=== PATIENT | female | born 1975 | race Caucasian/White ===

== ENCOUNTER 2017-04-21 12:43 | Emergency (ER) | payer OTHER ==
--- NOTE | 2017-04-21 14:17 | ED ORDER SUMMARY ---
..... Patient: KIERA GRAY OrderSheet [facility] VisitID: [id number] [address] [place] [address] 41y, F Registration Date/Time: 04/21/2017 ORDER SHEET Weight: 69.8 kg (stated) Allergies: No Known Drug Allergy GENERAL ORDERS: US Venous Left Urgent (13:05 04/21/2017 Vania Martines) (Ack 13:07 PWeiler ER Tech1) (13:17 LWhalen R.N.) MEDICATION ORDERS: Keflex PO 500 mg (NOW) (13:05 04/21/2017 Vania Martines) (Ack 13:11 MWinterer R.N.) (13:17 LWhalen R.N.) Bactrim DS PO (Tablet 800-160 mg) 1 tab (NOW) (13:05 04/21/2017 Vania Martines) (Ack 13:11 MWinterer R.N.) (13:17 LWhalen R.N.) IV FLUIDS: ORDER SHEET NOTES: [Electronically signed by Luba Buchanan R.N. (14:35 04/21/2017)] [Electronically signed by Chaitanya Ortiz Dr. (19:06 04/22/2017)] [Electronically locked/signed by Luba Buchanan R.N. (14:35 04/21/2017)]
--- NOTE | 2017-04-21 14:17 | ED NURSING NOTES ---
Clinical Report - Nurses [place] [address] [place] [address] 04/21/2017 12:49 Patient: KIERA GRAY TRIAGE Acuity: LEVEL 4. Chief Complaint: LEFT LOWER EXTREMITY PAIN, SWELLING and REDNESS. Alert. No acute distress. SEPSIS SCREEN: Sepsis Screen. Negative (no infection suspected/documented). ZACARIAS COMA SCORE: [facility] Coma Scale: 15- eyes open spontaneously (4); best verbal response- oriented x 4 (5); best motor response- obeys commands (6). --12:59 Toña Avila R.N. 12:54 04/21/17. BP: 133/69. HR: 75. RR: 12. O2 saturation: 100% on room air. Temp: 98.1 F (oral). Pain level now: 0/10. --12:59 Toña Avila R.N. Weight: 69.8 kg stated. Height/Length: 67 inches Per Patient. BMI: 24.1. --12:58 Toña Avila R.N. Medications PARoxetine HCl Oral (Tablet 40 mg) 1 tablet, q day. --12:55 Toña Avila R.N. BuPROPion HCl Oral. --12:55 Toña Avila R.N. Chantix Oral. --12:55 Toña Avila R.N. Medication/allergy information source: the patient. --12:59 Toña Avila R.N. Allergies No Known Drug Allergy. --12:56 Toña Avila R.N. History Arrived by private vehicle. Historian: patient. Unaccompanied. Primary physician (Elmo). No injury occurred. This occurred (3 days ago). 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 PAST MEDICAL HX: Immunizations: up-to-date. Last normal menstrual period now. SOCIAL HX: Current every day heavy tobacco smoker (cigarette)- less than 1 pack per day. Occasional alcohol use. No drug use. FALL RISK ASSESSMENT: Fall risk assessment completed. No fall risk identified. NUTRITIONAL RISK ASSESSMENT: The nutritional risk assessment revealed no deficiencies. FUNCTIONAL ASSESSMENT: Functional assessment: no impairments noted. LEARNING NEEDS ASSESSMENT: The learning needs assessment revealed no barriers. SKIN INTEGRITY ASSESSMENT: Skin integrity risk assessment completed. No skin integrity risk identified. --12:59 Toña Avila R.N. PROBLEMS: Genital Lesion. Concussion. Fall. Anxiety Reaction. Bronchitis. Pharyngitis. Substance Abuse. Headache. Depression. Ureterolithiasis. Renal Colic. Immunizations. --12:56 Toña Avila R.N. ADDITIONAL SURGERIES: Cholecystectomy. Tubal Ligation. --12:56 Toña Avila R.N. Assessment GENERAL / NEURO / PSYCH: Alert. Oriented X 4. Appears in no acute distress. Patient appears calm and cooperative. RESPIRATORY: Respirations not labored. CVS: Capillary refill less than 2 seconds. GI / : Abdomen soft and nontender. SKIN: Mucous membranes are pink. Skin is warm and dry. --12:59 Toña Avila R.N. Interventions ID band on patient. To treatment room. --12:59 Toña Avila R.N. PHYSICAL ASSESSMENT Ambulatory to room. GENERAL / NEURO / PSYCH: Oriented X 4. Alert. Appears in no acute distress. EXTREMITIES: Extremity pulses are within normal limits. Extremities exhibit normal ROM. Neuro-vascular status intact to the extremity. No lower extremity edema. Normal gait. Left leg: tenderness, swelling and erythema. SKIN: Skin intact. Skin is warm and dry. --12:59 Toña Avila R.N. NURSING PROGRESS NOTES 13:00 04/21/17. Patient gowned. Two patient identifiers checked. Call light placed in reach. Side rails up x 1. Bed placed in lowest position. Brakes of bed on. Patient ready for evaluation- ED physician notified. --13:00 Toña Avila R.N. 13:17 04/21/2017 Keflex (Cephalexin) PO Capsules 500 mg given. Allergies verified and confirmed 5 rights. --13:17 Luba Buchanan R.N. 13:17 04/21/2017 Bactrim DS (Sulfamethoxazole-TMP DS) PO Tablets 1 tab given. Allergies verified and confirmed 5 rights. --13:17 Luba Buchanan R.N. DISPOSITION / DISCHARGE Departure time: 14:35 Apr 21 2017. Condition at departure: improved. No learning barriers present. Discharge instructions provided and reviewed with the patient. Reviewed warnings. Reviewed medication(s). Treatments reviewed. Reviewed referrals. Patient verbalized understanding. Written instructions provided in Frisian. The patient was discharged home. She left the Emergency Department ambulatory and via private vehicle. Patient driving. --14:35 Luba Buchanan R.N. 14:34 04/21/17. BP: 112/72. HR: 60. RR: 18. O2 saturation: 100%. Temp: 98.4 F. Pain level now 12/26. --14:35 Luba Buchanan R.N. Locked/Released at 04/21/2017 14:35 by Luba Buchanan R.N.
--- NOTE | 2017-04-21 14:17 | ED ORDER SUMMARY ---
..... Patient: KIERA GRAY OrderSheet [facility] VisitID: [id number] [address] [place] [address] 41y, F Registration Date/Time: 04/21/2017 ORDER SHEET Weight: 69.8 kg (stated) Allergies: No Known Drug Allergy GENERAL ORDERS: US Venous Left Urgent (13:05 04/21/2017 Vania Martines) (Ack 13:07 PWeiler ER Tech1) (13:17 LWhalen R.N.) MEDICATION ORDERS: Keflex PO 500 mg (NOW) (13:05 04/21/2017 Vania Martines) (Ack 13:11 MWinterer R.N.) (13:17 LWhalen R.N.) Bactrim DS PO (Tablet 800-160 mg) 1 tab (NOW) (13:05 04/21/2017 Vania Martines) (Ack 13:11 MWinterer R.N.) (13:17 LWhalen R.N.) IV FLUIDS: ORDER SHEET NOTES: [Electronically signed by Luba Buchanan R.N. (14:35 04/21/2017)] [Electronically signed by Chaitanya Ortiz Dr. (19:06 04/22/2017)] [Electronically locked/signed by Luba Buchanan R.N. (14:35 04/21/2017)]
--- NOTE | 2017-04-21 14:17 | ED CLINICAL REPORT ---
Clinical Report - Physicians/Mid Levels [facility] [address] [place] [place] [address] 04/21/2017 12:49 Patient: KIERA GRAY Time Seen: 1249. Arrived- By private vehicle. Historian- patient. HISTORY OF PRESENT ILLNESS Chief Complaint: LOWER EXTREMITY PAIN and SWELLING. This started 3 days ago and is still present (unchanged). It was gradual in onset and has been constant but is not gone now. Modifying factors- worsened by movement. Relieved by remaining still. Severity is described as being moderate. The quality is noted to be sharp. No radiation. The patient has had redness and swelling. No difficulty walking. No bladder dysfunction, bowel dysfunction, sensory loss or motor loss. ( no hx of PE or DVT. No recent surgeries or trauma. NO OCP use.). Patient denies an injury. Similar symptoms previously: None. Recent medical care: Not recently seen/assessed. REVIEW OF SYSTEMS No chest pain, difficulty breathing or fever. All systems otherwise negative, except as recorded above. PAST HISTORY See nurses notes. Medications: Chantix Oral. BuPROPion HCl Oral. PARoxetine HCl Oral (Tablet 40 mg) 1 tablet, q day. Allergies: No Known Drug Allergy. ADDITIONAL NOTES The nursing notes have been reviewed. PHYSICAL EXAM Vital Signs: 04/21/2017 14:34 BP: 112/72. HR: 60. RR: 18. O2 saturation: 100%. Temp: 98.4 F. Blood pressure normal. Oxygen saturation normal. Appearance: Alert. Oriented X3. No acute distress. CVS: Normal heart rate and rhythm. Heart sounds normal. Respiratory: No respiratory distress. Breath sounds normal. Abdomen: Soft and nontender. No organomegaly. Back: Normal inspection. No tenderness. ROM normal. Skin: (left posterior lower leg erythema. Increased warmth. Mild tenderness. No masses. No induration. No crepitus. It is mild/moderate in area.). Extremities: Lower extremities exhibit normal ROM. No lower extremity edema. Gait: Normal gait. Neuro: Oriented X 3. No motor deficit. LABS, X-RAYS, AND EKG Lower Extremity Sonography: PROCEDURE: US VENOUS - LEFT EXT INDICATION: Swelling and pain x 3 days. TECHNIQUE: Duplex sonography of the deep venous system in the left lower extremity was performed. Compression and augmentation techniques were used. COMPARISON: None. FINDINGS: Normal compression of the greater saphenous, common femoral, superficial femoral, popliteal, peroneal, and posterior tibial veins. Normal augmentation. There is no evidence of superficial or deep venous thrombosis. No evidence of a focal mass or cyst. IMPRESSION: 1. Negative venous ultrasound of the left lower extremity. The study was independently viewed by me and interpreted by the radiologist. The study was discussed with the radiologist (via pacs). PROGRESS AND PROCEDURES Course of Care: the patient is a pleasant 41-year-old female presenting for evaluation of swelling to the left lower extremity. At this time, patient has cellulitis, but also like to evaluate for signs of DVT. Patient is he treatment plan. Patient appears nontoxic. Patient is afebrile and not tachycardic. No concern for sepsis at this time. The patient's workup was markable for the findings above. No signs of DVT noted on patient's ultrasound. Patient with cellulitis to the left lower extremity. Patient will be treated with antibiotics. First dose has been provided here in the emergency department. Had a discussion with the patient in regards to work. Emergency department including diagnosis, home care, follow-up, and return precautions. All questions have been answered. The patient expressed understanding of these instructions and was agreeable to them. Prior to the patient's departure from the emergency department she is noted to be ambulatory and in no acute distress. Patient continues to be nontoxic. Patient is a good outpatient candidate. Disposition: Discharged. Condition: good. CLINICAL IMPRESSION Cellulitis of the left lower leg (acute). INSTRUCTIONS Warnings: GENERAL WARNINGS: Return or contact your physician immediately if your condition worsens or changes unexpectedly, if not improving as expected, or if other problems arise. Specifically return if pain, vomiting, bleeding, breathing difficulty or fever. Your Current Medications: CONTINUE TAKING THE FOLLOWING MEDICATIONS: BuPROPion HCl Oral. Chantix Oral. PARoxetine HCl Oral : Tablet 40 mg, 1 tablet q day. Prescription Medications: Cephalexin 500 mg: take 1 capsule orally every 8 hours for 10 days. No refill. (disp 30 caps) Bactrim DS: take 1 tablet orally every 12 hours for 10 days. No refill. Substitution is not permissible. (substitution allowed. disp 20 tabs.) Follow-up: Return to the emergency department as needed. Follow up with your doctor in three days. Reason for referral: recheck today's concerns. Summary of care provided to patient via paper. Screening today revealed the patient's blood pressure to be in the normal range. The patient should follow up with a primary care provider for blood pressure management. Understanding of the discharge instructions verbalized by patient. (Electronically signed by Chaitanya Ortiz Dr. 04/22/2017 19:06)
--- NOTE | 2017-04-21 14:17 | ED NURSING NOTES ---
Clinical Report - Nurses [place] [address] [place] [address] 04/21/2017 12:49 Patient: KIERA GRAY TRIAGE Acuity: LEVEL 4. Chief Complaint: LEFT LOWER EXTREMITY PAIN, SWELLING and REDNESS. Alert. No acute distress. SEPSIS SCREEN: Sepsis Screen. Negative (no infection suspected/documented). ZACARIAS COMA SCORE: [place] Coma Scale: 15- eyes open spontaneously (4); best verbal response- oriented x 4 (5); best motor response- obeys commands (6). --12:59 Toña Avila R.N. 12:54 04/21/17. BP: 133/69. HR: 75. RR: 12. O2 saturation: 100% on room air. Temp: 98.1 F (oral). Pain level now: 0/10. --12:59 Toña Avila R.N. Weight: 69.8 kg stated. Height/Length: 67 inches Per Patient. BMI: 24.1. --12:58 Toña Avila R.N. Medications PARoxetine HCl Oral (Tablet 40 mg) 1 tablet, q day. --12:55 Toña Avila R.N. BuPROPion HCl Oral. --12:55 Toña Avila R.N. Chantix Oral. --12:55 Toña Avila R.N. Medication/allergy information source: the patient. --12:59 Toña Avila R.N. Allergies No Known Drug Allergy. --12:56 Toña Avila R.N. History Arrived by private vehicle. Historian: patient. Unaccompanied. Primary physician (Elmo). No injury occurred. This occurred (3 days ago). 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 PAST MEDICAL HX: Immunizations: up-to-date. Last normal menstrual period now. SOCIAL HX: Current every day heavy tobacco smoker (cigarette)- less than 1 pack per day. Occasional alcohol use. No drug use. FALL RISK ASSESSMENT: Fall risk assessment completed. No fall risk identified. NUTRITIONAL RISK ASSESSMENT: The nutritional risk assessment revealed no deficiencies. FUNCTIONAL ASSESSMENT: Functional assessment: no impairments noted. LEARNING NEEDS ASSESSMENT: The learning needs assessment revealed no barriers. SKIN INTEGRITY ASSESSMENT: Skin integrity risk assessment completed. No skin integrity risk identified. --12:59 Toña Avila R.N. PROBLEMS: Genital Lesion. Concussion. Fall. Anxiety Reaction. Bronchitis. Pharyngitis. Substance Abuse. Headache. Depression. Ureterolithiasis. Renal Colic. Immunizations. --12:56 Toña Avila R.N. ADDITIONAL SURGERIES: Cholecystectomy. Tubal Ligation. --12:56 Toña Avila R.N. Assessment GENERAL / NEURO / PSYCH: Alert. Oriented X 4. Appears in no acute distress. Patient appears calm and cooperative. RESPIRATORY: Respirations not labored. CVS: Capillary refill less than 2 seconds. GI / : Abdomen soft and nontender. SKIN: Mucous membranes are pink. Skin is warm and dry. --12:59 Toña Avila R.N. Interventions ID band on patient. To treatment room. --12:59 Toña Avila R.N. PHYSICAL ASSESSMENT Ambulatory to room. GENERAL / NEURO / PSYCH: Oriented X 4. Alert. Appears in no acute distress. EXTREMITIES: Extremity pulses are within normal limits. Extremities exhibit normal ROM. Neuro-vascular status intact to the extremity. No lower extremity edema. Normal gait. Left leg: tenderness, swelling and erythema. SKIN: Skin intact. Skin is warm and dry. --12:59 Toña Avila R.N. NURSING PROGRESS NOTES 13:00 04/21/17. Patient gowned. Two patient identifiers checked. Call light placed in reach. Side rails up x 1. Bed placed in lowest position. Brakes of bed on. Patient ready for evaluation- ED physician notified. --13:00 Toña Avila R.N. 13:17 04/21/2017 Keflex (Cephalexin) PO Capsules 500 mg given. Allergies verified and confirmed 5 rights. --13:17 Luba Buchanan R.N. 13:17 04/21/2017 Bactrim DS (Sulfamethoxazole-TMP DS) PO Tablets 1 tab given. Allergies verified and confirmed 5 rights. --13:17 Luba Buchanan R.N. DISPOSITION / DISCHARGE Departure time: 14:35 Apr 21 2017. Condition at departure: improved. No learning barriers present. Discharge instructions provided and reviewed with the patient. Reviewed warnings. Reviewed medication(s). Treatments reviewed. Reviewed referrals. Patient verbalized understanding. Written instructions provided in Danish. The patient was discharged home. She left the Emergency Department ambulatory and via private vehicle. Patient driving. --14:35 Luba Buchanan R.N. 14:34 04/21/17. BP: 112/72. HR: 60. RR: 18. O2 saturation: 100%. Temp: 98.4 F. Pain level now 12/26. --14:35 Luba Buchanan R.N. Locked/Released at 04/21/2017 14:35 by Luba Buchanan R.N.
--- NOTE | 2017-04-21 14:20 | DIAGNOSTIC IMAGING REPORT ---
PROCEDURE: US VENOUS - LEFT EXT INDICATION: Swelling and pain x 3 days. TECHNIQUE: Duplex sonography of the deep venous system in the left lower extremity was performed. Compression and augmentation techniques were used. COMPARISON: None. FINDINGS: Normal compression of the greater saphenous, common femoral, superficial femoral, popliteal, peroneal, and posterior tibial veins. Normal augmentation. There is no evidence of superficial or deep venous thrombosis. No evidence of a focal mass or cyst. IMPRESSION: 1. Negative venous ultrasound of the left lower extremity.
--- NOTE | 2017-04-22 19:06 | ED MED RECONCILIATION SUMMARY ---
Patient: KIERA GRAY Medication Reconciliation Report [facility] VisitID: [id number] [address] [place] [address] 41y, F Registration Date/Time: 04/21/2017 Weight: 69.8 kg Height/Length: 67 in. BMI: 24.1 ALLERGIES: No Known Drug Allergy The patient's Home Medications are listed below: CONTINUE TAKING THE FOLLOWING MEDICATIONS: BuPROPion HCl Oral Chantix Oral PARoxetine HCl Oral (40 mg) 1 tablet, q day The source(s) of the original Home Medication information: patient The following Medications were given to the patient in the Emergency Department: Keflex [PO] PO 500 mg, administered: 04/21/2017 1:17:00 PM Bactrim DS [PO] PO 1 tab, administered: 04/21/2017 1:17:00 PM The following Medications were prescribed to the patient: Cephalexin 500 mg: take 1 capsule orally every 8 hours for 10 days. No refill.(disp 30 caps) -- Chaitanya Ortiz Dr. Bactrim DS: take 1 tablet orally every 12 hours for 10 days. No refill. Substitution is not permissible.(substitution allowed. disp 20 tabs.) -- Chaitanya Ortiz Dr.
--- NOTE | 2017-04-22 19:06 | ED MAR SUMMARY ---
..... Medication Administration Record [facility] [address] [place] [address] Patient: KIERA GRAY Visit ID: [id number] 41y, F Weight: 69.8 kg Height/Length: 67 in BMI: 24.1 ALLERGIES: No Known Drug Allergy Given 13:04/21/2017 Luba Buchanan, RFedericoN. Medication Administered: KEFLEX [PO] (CEPHALEXIN), Dose: 500 mg Capsules PO. Medication Ordered: Keflex PO 500 mg (NOW). Given 13:04/21/2017 Luba Buchanan, R.N. Medication Administered: BACTRIM DS [PO] (SULFAMETHOXAZOLE-TMP DS), Dose: 1 tab Tablets PO. Medication Ordered: Bactrim DS PO (Tablet 800-160 mg) 1 tab (NOW).
--- NOTE | 2017-04-22 19:06 | ED DISCHARGE INSTRUCTIONS ---
Patient: KIERA GRAY General Instructions [facility] VisitID: [id number] [address] [place] [address] 41y, F Registration Date/Time: 04/21/2017 Cellulitis of the left lower leg (acute). INSTRUCTIONS Warnings: GENERAL WARNINGS: Return or contact your physician immediately if your condition worsens or changes unexpectedly, if not improving as expected, or if other problems arise. Specifically return if pain, vomiting, bleeding, breathing difficulty or fever. Your Current Medications: CONTINUE TAKING THE FOLLOWING MEDICATIONS: BuPROPion HCl Oral. Chantix Oral. PARoxetine HCl Oral : Tablet 40 mg, 1 tablet q day. Prescription Medications: Cephalexin 500 mg: take 1 capsule orally every 8 hours for 10 days. No refill. (disp 30 caps) Bactrim DS: take 1 tablet orally every 12 hours for 10 days. No refill. Substitution is not permissible. (substitution allowed. disp 20 tabs.) Follow-up: Return to the emergency department as needed. Follow up with your doctor in three days. Reason for referral: recheck today's concerns. Summary of care provided to patient via paper. Screening today revealed the patient's blood pressure to be in the normal range. The patient should follow up with a primary care provider for blood pressure management. Understanding of the discharge instructions verbalized by patient. ADDITIONAL INFORMATION Cellulitis You have an infection of the skin known as cellulitis. This usually starts with a scrape, cut, insect bite, blister or other opening in the skin which becomes infected. This is a serious condition. It must be watched closely to be sure the infection is not spreading. With antibiotic treatment, the size of the red area will gradually shrink in size until the skin returns to normal. This will take 7-10 days. The red area should never increase in size once the antibiotic medicine has been started. Occasionally, an infection will be resistant to one antibiotic and another one will have to be used. Home Care: 1) Limit the use of the affected part, since excess movement can cause the infection to spread. 2) If the infection is on your leg, walk as little as possible during the first few days of the treatment. Keep your leg elevated while sitting. This will reduce swelling. 3) Take all of the antibiotic medicine exactly as directed until it is gone. Be careful not to miss any doses, especially during the first seven days. Follow Up with your doctor or this facility as directed. Check the infected area daily for the warning signs listed below. Get Prompt Medical Attention if any of the following occur: -- Spreading area of redness -- Increasing swelling or pain -- Appearance of pus or drainage -- Fever over 100.4 F (38.0 C) oral, or over 101.4 F (38.6 C) rectal, after two days on antibiotics Cephalexin Monohydrate Oral tablet What is this medicine? CEPHALEXIN (sef a SARIAH in) is a cephalosporin antibiotic. It is used to treat certain kinds of bacterial infections It will not work for colds, flu, or other viral infections. How should I use this medicine? Take this medicine by mouth with a full glass of water. Follow the directions on the prescription label. This medicine can be taken with or without food. Take your medicine at regular intervals. Do not take your medicine more often than directed. Take all of your medicine as directed even if you think you are better. Do not skip doses or stop your medicine early. Talk to your appointment clerk regarding the use of this medicine in children. While this drug may be prescribed for selected conditions, precautions do apply. What side effects may I notice from receiving this medicine? Side effects that you should report to your doctor or health career services assistant as soon as possible: allergic reactions like skin rash, itching or hives, swelling of the face, lips, or tongue breathing problems pain or trouble passing urine redness, blistering, peeling or loosening of the skin, including inside the mouth severe or watery diarrhea unusually weak or tired yellowing of the eyes, skin Side effects that usually do not require medical attention (report to your doctor or health career services assistant if they continue or are bothersome): gas or heartburn genital or anal irritation headache joint or muscle pain nausea, vomiting What may interact with this medicine? probenecid some other antibiotics What if I miss a dose? If you miss a dose, take it as soon as you can. If it is almost time for your next dose, take only that dose. Do not take double or extra doses. There should be at least 4 to 6 hours between doses. Where should I keep my medicine? Keep out of the reach of children. Store at room temperature between 59 and 86 degrees F (15 and 30 degrees C). Throw away any unused medicine after the expiration date. What should I tell my health care provider before I take this medicine? They need to know if you have any of these conditions: kidney disease stomach or intestine problems, especially colitis an unusual or allergic reaction to cephalexin, other cephalosporins, penicillins, other antibiotics, medicines, foods, dyes or preservatives or trying to get breast-feeding What should I watch for while using this medicine? Tell your doctor or health career services assistant if your symptoms do not begin to improve in a few days. Do not treat diarrhea with over the counter products. Contact your doctor if you have diarrhea that lasts more than 2 days or if it is severe and watery. If you have diabetes, you may get a false-positive result for sugar in your urine. Check with your doctor or health career services assistant. Sulfamethoxazole, Trimethoprim Oral tablet What is this medicine? SULFAMETHOXAZOLE; TRIMETHOPRIM or SMX-TMP (suhl fuh meth OK angelo zohl; trye METH oh prim) is a combination of a sulfonamide antibiotic and a second antibiotic, trimethoprim. It is used to treat or prevent certain kinds of bacterial infections. It will not work for colds, flu, or other viral infections. How should I use this medicine? Take this medicine by mouth with a full glass of water. Follow the directions on the prescription label. Take your medicine at regular intervals. Do not take it more often than directed. Do not skip doses or stop your medicine early. Talk to your appointment clerk regarding the use of this medicine in children. Special care may be needed. This medicine has been used in children as young as 2 months of age. What side effects may I notice from receiving this medicine? Side effects that you should report to your doctor or health career services assistant as soon as possible: allergic reactions like skin rash or hives, swelling of the face, lips, or tongue breathing problems fever or chills, sore throat irregular heartbeat, chest pain joint or muscle pain pain or difficulty passing urine red pinpoint spots on skin redness, blistering, peeling or loosening of the skin, including inside the mouth unusual bleeding or bruising unusually weak or tired yellowing of the eyes or skin Side effects that usually do not require medical attention (report to your doctor or health career services assistant if they continue or are bothersome): diarrhea dizziness headache loss of appetite nausea, vomiting nervousness What may interact with this medicine? Do not take this medicine with any of the following medications: aminobenzoate potassium dofetilide metronidazole This medicine may also interact with the following medications: AGUILAR inhibitors like benazepril, enalapril, lisinopril, and ramipril cyclosporine digoxin diuretics indomethacin medicines for diabetes methenamine methotrexate phenytoin potassium supplements pyrimethamine sulfinpyrazone tricyclic antidepressants warfarin What if I miss a dose? If you miss a dose, take it as soon as you can. If it is almost time for your next dose, take only that dose. Do not take double or extra doses. Where should I keep my medicine? Keep out of the reach of children. Store at room temperature between 20 to 25 degrees C (68 to 77 degrees F). Protect from light. Throw away any unused medicine after the expiration date. What should I tell my health care provider before I take this medicine? They need to know if you have any of these conditions: anemia asthma being treated with anticonvulsants if you frequently drink alcohol containing drinks kidney disease liver disease low level of folic acid or [id number]-[id number] dehydrogenase poor nutrition or malabsorption porphyria severe allergies thyroid disorder an unusual or allergic reaction to sulfamethoxazole, trimethoprim, sulfa drugs, other medicines, foods, dyes, or preservatives or trying to get breast-feeding What should I watch for while using this medicine? Tell your doctor or health career services assistant if your symptoms do not improve. Drink several glasses of water a day to reduce the risk of kidney problems. Do not treat diarrhea with over the counter products. Contact your doctor if you have diarrhea that lasts more than 2 days or if it is severe and watery. This medicine can make you more sensitive to the sun. Keep out of the sun. If you cannot avoid being in the sun, wear protective clothing and use a sunscreen. Do not use sun lamps or tanning beds/booths. You have been given the following additional information: Cellulitis Cephalexin Monohydrate Oral tablet Sulfamethoxazole, Trimethoprim Oral tablet (Electronically signed by Chaitanya Ortiz Dr. 04/22/2017 19:06)
--- NOTE | 2017-04-22 19:06 | ED MED RECONCILIATION SUMMARY ---
Patient: KIERA GRAY Medication Reconciliation Report [facility] VisitID: [id number] [address] [place] [address] 41y, F Registration Date/Time: 04/21/2017 Weight: 69.8 kg Height/Length: 67 in. BMI: 24.1 ALLERGIES: No Known Drug Allergy The patient's Home Medications are listed below: CONTINUE TAKING THE FOLLOWING MEDICATIONS: BuPROPion HCl Oral Chantix Oral PARoxetine HCl Oral (40 mg) 1 tablet, q day The source(s) of the original Home Medication information: patient The following Medications were given to the patient in the Emergency Department: Keflex [PO] PO 500 mg, administered: 04/21/2017 1:17:00 PM Bactrim DS [PO] PO 1 tab, administered: 04/21/2017 1:17:00 PM The following Medications were prescribed to the patient: Cephalexin 500 mg: take 1 capsule orally every 8 hours for 10 days. No refill.(disp 30 caps) -- Chaitanya Ortiz Dr. Bactrim DS: take 1 tablet orally every 12 hours for 10 days. No refill. Substitution is not permissible.(substitution allowed. disp 20 tabs.) -- Chaitanya Ortiz Dr.
--- NOTE | 2017-04-22 19:06 | ED MAR SUMMARY ---
..... Medication Administration Record [facility] [address] [place] [address] Patient: KIERA GRAY Visit ID: [id number] 41y, F Weight: 69.8 kg Height/Length: 67 in BMI: 24.1 ALLERGIES: No Known Drug Allergy Given 13:04/21/2017 Luba Buchanan, RFedericoN. Medication Administered: KEFLEX [PO] (CEPHALEXIN), Dose: 500 mg Capsules PO. Medication Ordered: Keflex PO 500 mg (NOW). Given 13:04/21/2017 Luba Buchanan, R.N. Medication Administered: BACTRIM DS [PO] (SULFAMETHOXAZOLE-TMP DS), Dose: 1 tab Tablets PO. Medication Ordered: Bactrim DS PO (Tablet 800-160 mg) 1 tab (NOW).
--- NOTE | 2017-04-22 19:06 | ED DISCHARGE INSTRUCTIONS ---
Patient: KIERA GRAY General Instructions [facility] VisitID: [id number] [address] [place] [address] 41y, F Registration Date/Time: 04/21/2017 Cellulitis of the left lower leg (acute). INSTRUCTIONS Warnings: GENERAL WARNINGS: Return or contact your physician immediately if your condition worsens or changes unexpectedly, if not improving as expected, or if other problems arise. Specifically return if pain, vomiting, bleeding, breathing difficulty or fever. Your Current Medications: CONTINUE TAKING THE FOLLOWING MEDICATIONS: BuPROPion HCl Oral. Chantix Oral. PARoxetine HCl Oral : Tablet 40 mg, 1 tablet q day. Prescription Medications: Cephalexin 500 mg: take 1 capsule orally every 8 hours for 10 days. No refill. (disp 30 caps) Bactrim DS: take 1 tablet orally every 12 hours for 10 days. No refill. Substitution is not permissible. (substitution allowed. disp 20 tabs.) Follow-up: Return to the emergency department as needed. Follow up with your doctor in three days. Reason for referral: recheck today's concerns. Summary of care provided to patient via paper. Screening today revealed the patient's blood pressure to be in the normal range. The patient should follow up with a primary care provider for blood pressure management. Understanding of the discharge instructions verbalized by patient. ADDITIONAL INFORMATION Cellulitis You have an infection of the skin known as cellulitis. This usually starts with a scrape, cut, insect bite, blister or other opening in the skin which becomes infected. This is a serious condition. It must be watched closely to be sure the infection is not spreading. With antibiotic treatment, the size of the red area will gradually shrink in size until the skin returns to normal. This will take 7-10 days. The red area should never increase in size once the antibiotic medicine has been started. Occasionally, an infection will be resistant to one antibiotic and another one will have to be used. Home Care: 1) Limit the use of the affected part, since excess movement can cause the infection to spread. 2) If the infection is on your leg, walk as little as possible during the first few days of the treatment. Keep your leg elevated while sitting. This will reduce swelling. 3) Take all of the antibiotic medicine exactly as directed until it is gone. Be careful not to miss any doses, especially during the first seven days. Follow Up with your doctor or this facility as directed. Check the infected area daily for the warning signs listed below. Get Prompt Medical Attention if any of the following occur: -- Spreading area of redness -- Increasing swelling or pain -- Appearance of pus or drainage -- Fever over 100.4 F (38.0 C) oral, or over 101.4 F (38.6 C) rectal, after two days on antibiotics Cephalexin Monohydrate Oral tablet What is this medicine? CEPHALEXIN (sef a SARIAH in) is a cephalosporin antibiotic. It is used to treat certain kinds of bacterial infections It will not work for colds, flu, or other viral infections. How should I use this medicine? Take this medicine by mouth with a full glass of water. Follow the directions on the prescription label. This medicine can be taken with or without food. Take your medicine at regular intervals. Do not take your medicine more often than directed. Take all of your medicine as directed even if you think you are better. Do not skip doses or stop your medicine early. Talk to your keypuncher regarding the use of this medicine in children. While this drug may be prescribed for selected conditions, precautions do apply. What side effects may I notice from receiving this medicine? Side effects that you should report to your doctor or health weekend caregiver as soon as possible: allergic reactions like skin rash, itching or hives, swelling of the face, lips, or tongue breathing problems pain or trouble passing urine redness, blistering, peeling or loosening of the skin, including inside the mouth severe or watery diarrhea unusually weak or tired yellowing of the eyes, skin Side effects that usually do not require medical attention (report to your doctor or health weekend caregiver if they continue or are bothersome): gas or heartburn genital or anal irritation headache joint or muscle pain nausea, vomiting What may interact with this medicine? probenecid some other antibiotics What if I miss a dose? If you miss a dose, take it as soon as you can. If it is almost time for your next dose, take only that dose. Do not take double or extra doses. There should be at least 4 to 6 hours between doses. Where should I keep my medicine? Keep out of the reach of children. Store at room temperature between 59 and 86 degrees F (15 and 30 degrees C). Throw away any unused medicine after the expiration date. What should I tell my health care provider before I take this medicine? They need to know if you have any of these conditions: kidney disease stomach or intestine problems, especially colitis an unusual or allergic reaction to cephalexin, other cephalosporins, penicillins, other antibiotics, medicines, foods, dyes or preservatives or trying to get breast-feeding What should I watch for while using this medicine? Tell your doctor or health weekend caregiver if your symptoms do not begin to improve in a few days. Do not treat diarrhea with over the counter products. Contact your doctor if you have diarrhea that lasts more than 2 days or if it is severe and watery. If you have diabetes, you may get a false-positive result for sugar in your urine. Check with your doctor or health weekend caregiver. Sulfamethoxazole, Trimethoprim Oral tablet What is this medicine? SULFAMETHOXAZOLE; TRIMETHOPRIM or SMX-TMP (suhl fuh meth OK angelo zohl; trye METH oh prim) is a combination of a sulfonamide antibiotic and a second antibiotic, trimethoprim. It is used to treat or prevent certain kinds of bacterial infections. It will not work for colds, flu, or other viral infections. How should I use this medicine? Take this medicine by mouth with a full glass of water. Follow the directions on the prescription label. Take your medicine at regular intervals. Do not take it more often than directed. Do not skip doses or stop your medicine early. Talk to your keypuncher regarding the use of this medicine in children. Special care may be needed. This medicine has been used in children as young as 2 months of age. What side effects may I notice from receiving this medicine? Side effects that you should report to your doctor or health weekend caregiver as soon as possible: allergic reactions like skin rash or hives, swelling of the face, lips, or tongue breathing problems fever or chills, sore throat irregular heartbeat, chest pain joint or muscle pain pain or difficulty passing urine red pinpoint spots on skin redness, blistering, peeling or loosening of the skin, including inside the mouth unusual bleeding or bruising unusually weak or tired yellowing of the eyes or skin Side effects that usually do not require medical attention (report to your doctor or health weekend caregiver if they continue or are bothersome): diarrhea dizziness headache loss of appetite nausea, vomiting nervousness What may interact with this medicine? Do not take this medicine with any of the following medications: aminobenzoate potassium dofetilide metronidazole This medicine may also interact with the following medications: AGUILAR inhibitors like benazepril, enalapril, lisinopril, and ramipril cyclosporine digoxin diuretics indomethacin medicines for diabetes methenamine methotrexate phenytoin potassium supplements pyrimethamine sulfinpyrazone tricyclic antidepressants warfarin What if I miss a dose? If you miss a dose, take it as soon as you can. If it is almost time for your next dose, take only that dose. Do not take double or extra doses. Where should I keep my medicine? Keep out of the reach of children. Store at room temperature between 20 to 25 degrees C (68 to 77 degrees F). Protect from light. Throw away any unused medicine after the expiration date. What should I tell my health care provider before I take this medicine? They need to know if you have any of these conditions: anemia asthma being treated with anticonvulsants if you frequently drink alcohol containing drinks kidney disease liver disease low level of folic acid or [id number] dehydrogenase poor nutrition or malabsorption porphyria severe allergies thyroid disorder an unusual or allergic reaction to sulfamethoxazole, trimethoprim, sulfa drugs, other medicines, foods, dyes, or preservatives or trying to get breast-feeding What should I watch for while using this medicine? Tell your doctor or health weekend caregiver if your symptoms do not improve. Drink several glasses of water a day to reduce the risk of kidney problems. Do not treat diarrhea with over the counter products. Contact your doctor if you have diarrhea that lasts more than 2 days or if it is severe and watery. This medicine can make you more sensitive to the sun. Keep out of the sun. If you cannot avoid being in the sun, wear protective clothing and use a sunscreen. Do not use sun lamps or tanning beds/booths. You have been given the following additional information: Cellulitis Cephalexin Monohydrate Oral tablet Sulfamethoxazole, Trimethoprim Oral tablet (Electronically signed by Chaitanya Ortiz Dr. 04/22/2017 19:06)
== END 2017-04-21 14:35 | disposition home or self-care (01) ==
LOC: ED SRH 12:43
DX: L03.116 Cellulitis of left lower limb (principal); Z79.899 Other long term (current) drug therapy; F17.210 Nicotine dependence, cigarettes, uncomplicated

== ENCOUNTER 2017-04-29 16:33 | Emergency (ER) | payer OTHER ==
--- NOTE | 2017-04-29 17:31 | ED CLINICAL REPORT ---
Clinical Report - Physicians/[facility] [address] [place] [address] 04/29/2017 16:32 [id number] Time Seen: 17:51 Dmitriy 14 2016. Arrived- By private vehicle. Historian- patient. HISTORY OF PRESENT ILLNESS Chief Complaint: SORE THROAT. This started 2 and is still present. Pain described as mild. The patient has had a sore throat. (patient reports taking Bactrim and Keflex for a left LE cellulitis, has 2 days remaining on the medication, over the last 2-3 days, has had fevers chills sensations and sore throat. Patient denies a cough. Prior 1 year testing for hiv, neg, denies any h/o exposures since. Denies h/o hep c). REVIEW OF SYSTEMS The patient has had fever. No cough, nausea, abdominal pain, difficulty with urination or headache. No fainting episodes or enlarged lymph nodes. All systems otherwise negative, except as recorded above. PAST HISTORY Problems: Cellulitis. Genital Lesion. Concussion. Fall. Anxiety Reaction. Bronchitis. Pharyngitis. URI. Substance Abuse. Headache. Depression. Ureterolithiasis. Renal Colic. Immunizations. Additional Surgeries: Cholecystectomy. Tubal Ligation. Medications: Bactrim DS Oral. Keflex Oral. BuPROPion HCl Oral. PARoxetine HCl Oral (Tablet 40 mg) 1 tablet, q day. Allergies: No Known Drug Allergy. ADDITIONAL NOTES The nursing notes have been reviewed. PHYSICAL EXAM Vital Signs: 04/29/2017 16:50 BP: 148/82. HR: 104. RR: 20. O2 saturation: 98%. Temp: 98.8 F. Pain level now: 5/10. Appearance: Alert. Head: Normal external inspection. Eyes: Conjunctivae and eyelids normal. ENT: Ears normal. Nose normal. Tonsillar exudate present (tongue lesions, with uvula midline.). Lips normal. No trismus present. Neck: Trachea midline. No adenopathy. No lymphadenopathy or meningeal signs. CVS: Heart sounds normal. Rhythm normal. PMI not displaced laterally. Respiratory: No respiratory distress. Breath sounds normal. No decreased air movement or rhonchi. Abdomen: Soft. Skin: Normal skin color. PROGRESS AND PROCEDURES Course of Care: Patient afebrile, with no history of comorbidities, recent antibiotic use, and now with oral lesions, most consistent with thrush, candidiasis, we'll treat with fluconazole. 04/29/2017 17:50 BP: 115/68. HR: 100. RR: 20. O2 saturation: 98%. Temp: 98.8 F. Pain level now: 5/10. Patient is stable. The patient's symptoms are unchanged. Patient/family counseled. Disposition: Discharged. Condition: good. CLINICAL IMPRESSION Candidiasis (secondary to antibiotics). INSTRUCTIONS Drink plenty of fluids. Prescription Medications: Diflucan 200 mg tablets: take 1 tablet orally , then take 1 tablet orally every day for 10 days. No refill. Substitution is permissible. (Electronically signed by Jes Ballesteros P.A.-C 04/29/2017 17:57)
--- NOTE | 2017-04-29 17:31 | ED CLINICAL REPORT ---
Clinical Report - Physicians/Mid Levels [facility] [address] [place] [address] 04/29/2017 16:32 [id number] Time Seen: 17:51 Dmitriy 14 2016. Arrived- By private vehicle. Historian- patient. HISTORY OF PRESENT ILLNESS Chief Complaint: SORE THROAT. This started 2 and is still present. Pain described as mild. The patient has had a sore throat. (patient reports taking Bactrim and Keflex for a left LE cellulitis, has 2 days remaining on the medication, over the last 2-3 days, has had fevers chills sensations and sore throat. Patient denies a cough. Prior 1 year testing for hiv, neg, denies any h/o exposures since. Denies h/o hep c). REVIEW OF SYSTEMS The patient has had fever. No cough, nausea, abdominal pain, difficulty with urination or headache. No fainting episodes or enlarged lymph nodes. All systems otherwise negative, except as recorded above. PAST HISTORY Problems: Cellulitis. Genital Lesion. Concussion. Fall. Anxiety Reaction. Bronchitis. Pharyngitis. URI. Substance Abuse. Headache. Depression. Ureterolithiasis. Renal Colic. Immunizations. Additional Surgeries: Cholecystectomy. Tubal Ligation. Medications: Bactrim DS Oral. Keflex Oral. BuPROPion HCl Oral. PARoxetine HCl Oral (Tablet 40 mg) 1 tablet, q day. Allergies: No Known Drug Allergy. ADDITIONAL NOTES The nursing notes have been reviewed. PHYSICAL EXAM Vital Signs: 04/29/2017 16:50 BP: 148/82. HR: 104. RR: 20. O2 saturation: 98%. Temp: 98.8 F. Pain level now: 5/10. Appearance: Alert. Head: Normal external inspection. Eyes: Conjunctivae and eyelids normal. ENT: Ears normal. Nose normal. Tonsillar exudate present (tongue lesions, with uvula midline.). Lips normal. No trismus present. Neck: Trachea midline. No adenopathy. No lymphadenopathy or meningeal signs. CVS: Heart sounds normal. Rhythm normal. PMI not displaced laterally. Respiratory: No respiratory distress. Breath sounds normal. No decreased air movement or rhonchi. Abdomen: Soft. Skin: Normal skin color. PROGRESS AND PROCEDURES Course of Care: Patient afebrile, with no history of comorbidities, recent antibiotic use, and now with oral lesions, most consistent with thrush, candidiasis, we'll treat with fluconazole. 04/29/2017 17:50 BP: 115/68. HR: 100. RR: 20. O2 saturation: 98%. Temp: 98.8 F. Pain level now: 5/10. Patient is stable. The patient's symptoms are unchanged. Patient/family counseled. Disposition: Discharged. Condition: good. CLINICAL IMPRESSION Candidiasis (secondary to antibiotics). INSTRUCTIONS Drink plenty of fluids. Prescription Medications: Diflucan 200 mg tablets: take 1 tablet orally , then take 1 tablet orally every day for 10 days. No refill. Substitution is permissible. (Electronically signed by Jes Ballesteros P.A.-C 04/29/2017 17:57)
--- NOTE | 2017-04-29 17:31 | ED NURSING NOTES ---
Clinical Report - Nurses [facility] [address] [place] [address] 04/29/2017 16:32 Patient: KIERA GRAY TRIAGE Triage time 16:48. Acuity: LEVEL 4. Chief Complaint: (Pt thinks she has thrush and feels like her body is on fire. Onset Thursday. Pt is currently on Keflex and Bactrim DS that were prescribed here on April 21 for cellulitis. No visible rash.). SEPSIS SCREEN: Sepsis Screen. Negative (no infection suspected/documented). ZACARIAS COMA SCORE: [place] Coma Scale: 15- eyes open spontaneously (4); best verbal response- oriented x 4 (5); best motor response- obeys commands (6). --16:54 Mark Leary R.N. 16:50 04/29/17. BP: 148/82 (regular adult cuff) taken on the left arm, while sitting. HR: 104. RR: 20. O2 saturation: 98% on room air. Temp: 98.8 F (oral). Pain level now: 5/10. --16:54 Mark Leary R.N. Weight: 68 kg stated. Height/Length: 67 inches Per Patient. BMI: 23.5. --16:52 Mark Leary R.N. Medications BuPROPion HCl Oral. PARoxetine HCl Oral (Tablet 40 mg) 1 tablet, q day. --16:49 Mark Leary R.N. Keflex Oral. --16:50 Mark Leary R.N. Bactrim DS Oral. --16:51 Mark Leary R.N. Allergies No Known Drug Allergy. --16:49 Mark Leary R.N. History Arrived by private vehicle. Historian: patient. SOCIAL HX: Heavy tobacco smoker (cigarette)- less than 1 pack per day. Occasional alcohol use. History of occasional drug use: marijuana. ABUSE ASSESSMENT: No report of abuse. --16:54 Mark Leary R.N. PROBLEMS: Cellulitis. Genital Lesion. Concussion. Fall. Anxiety Reaction. Bronchitis. Pharyngitis. URI. Substance Abuse. Headache. Depression. Ureterolithiasis. Renal Colic. --16:51 Mark Leary R.N. ADDITIONAL SURGERIES: Cholecystectomy. Tubal Ligation. --16:51 Mark Leary R.N. Interventions ID band on patient. To treatment room. --16:54 Mark Leary R.N. PHYSICAL ASSESSMENT Ambulatory to room. GENERAL / NEURO / PSYCH: Alert. Oriented X 4. Appears in no acute distress. HEENT: Pupils equal, round and reactive to light. No facial asymmetry noted. Mucous membranes are pink. RESPIRATORY: Respirations not labored. Chest nontender. Breath sounds within normal limits. CVS: Capillary refill less than 2 seconds. Pulses within normal limits. GI / : Abdomen soft and nontender and normal bowel sounds. SKIN: Skin intact. Skin is warm and dry. Normal skin turgor. ( c/o of generalized itching). --17:04 Mark Leary R.N. NURSING PROGRESS NOTES Patient gowned. Head of bed elevated. Reassurance given. Two patient identifiers checked. Call light placed in reach. Bed placed in lowest position. Brakes of bed on. Patient ready for evaluation- chart flagged. --17:04 Mark Leary R.N. DISPOSITION / DISCHARGE Departure time: 1750. Condition at departure: unchanged and stable. No learning barriers present. Discharge instructions provided and reviewed with the patient. Reviewed medication(s). Patient verbalized understanding. Written instructions provided in Lao. The patient was discharged by the physician instructional assistant. She was discharged home. She left the Emergency Department ambulatory and via private vehicle. Patient driving. --17:53 Mark Leary R.N. 17:50 04/29/17. BP: 115/68. HR: 100. RR: 20. O2 saturation: 98% on room air. Temp: 98.8 F (oral). Pain level now: 03/25. --17:53 Mark Leary R.N. Locked/Released at 04/29/2017 17:54 by Mark Leary R.N.
--- NOTE | 2017-04-29 17:31 | ED NURSING NOTES ---
Clinical Report - Nurses [facility] [address] [place] [address] 04/29/2017 16:32 Patient: KIERA GRAY TRIAGE Triage time 16:48. Acuity: LEVEL 4. Chief Complaint: (Pt thinks she has thrush and feels like her body is on fire. Onset Thursday. Pt is currently on Keflex and Bactrim DS that were prescribed here on April 21 for cellulitis. No visible rash.). SEPSIS SCREEN: Sepsis Screen. Negative (no infection suspected/documented). ZACARIAS COMA SCORE: [place] Coma Scale: 15- eyes open spontaneously (4); best verbal response- oriented x 4 (5); best motor response- obeys commands (6). --16:54 Mark Leary R.N. 16:50 04/29/17. BP: 148/82 (regular adult cuff) taken on the left arm, while sitting. HR: 104. RR: 20. O2 saturation: 98% on room air. Temp: 98.8 F (oral). Pain level now: 5/10. --16:54 Mark Leary R.N. Weight: 68 kg stated. Height/Length: 67 inches Per Patient. BMI: 23.5. --16:52 Mark Leary R.N. Medications BuPROPion HCl Oral. PARoxetine HCl Oral (Tablet 40 mg) 1 tablet, q day. --16:49 Mark Leary R.N. Keflex Oral. --16:50 Mark Leary R.N. Bactrim DS Oral. --16:51 Mark Leary R.N. Allergies No Known Drug Allergy. --16:49 Mark Leary R.N. History Arrived by private vehicle. Historian: patient. SOCIAL HX: Heavy tobacco smoker (cigarette)- less than 1 pack per day. Occasional alcohol use. History of occasional drug use: marijuana. ABUSE ASSESSMENT: No report of abuse. --16:54 Mark Laery R.N. PROBLEMS: Cellulitis. Genital Lesion. Concussion. Fall. Anxiety Reaction. Bronchitis. Pharyngitis. URI. Substance Abuse. Headache. Depression. Ureterolithiasis. Renal Colic. --16:51 Mark Leary R.N. ADDITIONAL SURGERIES: Cholecystectomy. Tubal Ligation. --16:51 Mark Leary R.N. Interventions ID band on patient. To treatment room. --16:54 Mark Leary R.N. PHYSICAL ASSESSMENT Ambulatory to room. GENERAL / NEURO / PSYCH: Alert. Oriented X 4. Appears in no acute distress. HEENT: Pupils equal, round and reactive to light. No facial asymmetry noted. Mucous membranes are pink. RESPIRATORY: Respirations not labored. Chest nontender. Breath sounds within normal limits. CVS: Capillary refill less than 2 seconds. Pulses within normal limits. GI / : Abdomen soft and nontender and normal bowel sounds. SKIN: Skin intact. Skin is warm and dry. Normal skin turgor. ( c/o of generalized itching). --17:04 Mark Leary R.N. NURSING PROGRESS NOTES Patient gowned. Head of bed elevated. Reassurance given. Two patient identifiers checked. Call light placed in reach. Bed placed in lowest position. Brakes of bed on. Patient ready for evaluation- chart flagged. --17:04 Mark Leary R.N. DISPOSITION / DISCHARGE Departure time: 1750. Condition at departure: unchanged and stable. No learning barriers present. Discharge instructions provided and reviewed with the patient. Reviewed medication(s). Patient verbalized understanding. Written instructions provided in Pashto. The patient was discharged by the physician assistant analyst. She was discharged home. She left the Emergency Department ambulatory and via private vehicle. Patient driving. --17:53 Mark Leary R.N. 17:50 04/29/17. BP: 115/68. HR: 100. RR: 20. O2 saturation: 98% on room air. Temp: 98.8 F (oral). Pain level now: 03/25. --17:53 Mark Leary R.N. Locked/Released at 04/29/2017 17:54 by Mark Leary R.N.
--- NOTE | 2017-04-29 17:57 | ED MED RECONCILIATION SUMMARY ---
Patient: KIERA GRAY Medication Reconciliation Report [facility] VisitID: [id number] [address] [place] [address] 41y, F Registration Date/Time: 04/29/2017 Weight: 68.0 kg Height/Length: 67 in. BMI: 23.5 ALLERGIES: No Known Drug Allergy The patient's Home Medications are listed below: THE FOLLOWING MEDICATIONS NEED TO BE RECONCILED: Bactrim DS Oral BuPROPion HCl Oral Keflex Oral PARoxetine HCl Oral (40 mg) 1 tablet, q day The source(s) of the original Home Medication information: Not obtained. The following Medications were given to the patient in the Emergency Department: None. The following Medications were prescribed to the patient: Diflucan 200 mg tablets: take 1 tablet orally , then take 1 tablet orally every day for 10 days. No refill. Substitution is permissible. -- Jes Ballesteros, PFedericoA.-C
--- NOTE | 2017-04-29 17:57 | ED MED RECONCILIATION SUMMARY ---
Patient: KIERA GRAY Medication Reconciliation Report [facility] VisitID: [id number] [address] [place] [address] 41y, F Registration Date/Time: 04/29/2017 Weight: 68.0 kg Height/Length: 67 in. BMI: 23.5 ALLERGIES: No Known Drug Allergy The patient's Home Medications are listed below: THE FOLLOWING MEDICATIONS NEED TO BE RECONCILED: Bactrim DS Oral BuPROPion HCl Oral Keflex Oral PARoxetine HCl Oral (40 mg) 1 tablet, q day The source(s) of the original Home Medication information: Not obtained. The following Medications were given to the patient in the Emergency Department: None. The following Medications were prescribed to the patient: Diflucan 200 mg tablets: take 1 tablet orally , then take 1 tablet orally every day for 10 days. No refill. Substitution is permissible. -- Jes Ballesteros, PFedericoA.-C
--- NOTE | 2017-04-29 17:57 | ED DISCHARGE INSTRUCTIONS ---
Patient: KIERA GRAY General Instructions [facility] VisitID: [id number] [place] [address] 41y, F Registration Date/Time: 04/29/2017 Candidiasis (secondary to antibiotics). INSTRUCTIONS Drink plenty of fluids. Prescription Medications: Diflucan 200 mg tablets: take 1 tablet orally , then take 1 tablet orally every day for 10 days. No refill. Substitution is permissible. ADDITIONAL INFORMATION Elisa Infection: Thrush [Child] Elisa is a yeast that occurs naturally on the skin and in the mouth. If Elisa grows out of control, it can cause an infection. Elisa can cause a mouth infection called thrush. Children with a weakened immune system or who have been on antibiotic therapy are more likely to get thrush. Elisa infection is often painful and itchy. Thrush causes cracked skin in the corners of the mouth and whitish patches on the tongue and inside of the cheeks. The patches may look like milk. It may be painful for your child to swallow. Oral Elisa is treated with liquid medication given in the mouth through a dropper. Home Care: Medications: Your doctor may prescribe liquid antifungal medication to put in your estefania mouth. Follow the doctors instructions when using this medication. General Care: Rinse your estefania mouth with water after each meal. Then give the liquid medication to your child as directed. Apply the prescribed amount of medication with a dropper into each side of the mouth (between the gum and the cheek) as directed for at least one week and until all white spots are gone. If your child uses a pacifier, boil it for 5 to 10 minutes at least once a day. Thoroughly wash drinking cups and dropper using warm water and soap after each use. Wash your hands well with warm water and soap before and after taking care of your child to avoid spreading infection. Have your child wash his or her hands with warm water and soap after using the toilet and before and after eating. Monitor your child for continued signs of infection. Follow Up as advised by the doctor or our staff. Persistent Elisa infections in children may be a sign of an underlying medical problem. Get Prompt Medical Attention if any of the following occur: Child has fever greater than 100.4F (38C) rectal Child stops eating or drinking Child has continuing or increasing pain Infection gets worse Fluconazole Oral tablet What is this medicine? FLUCONAZOLE (floo LUNA na zole) is an antifungal medicine. It is used to treat certain kinds of fungal or yeast infections. How should I use this medicine? Take this medicine by mouth. Follow the directions on the prescription label. Do not take your medicine more often than directed. Talk to your national park tour guide regarding the use of this medicine in children. Special care may be needed. This medicine has been used in children as young as 6 months of age. What side effects may I notice from receiving this medicine? Side effects that you should report to your doctor or health post acute care nurse practitioner as soon as possible: allergic reactions like skin rash or itching, hives, swelling of the lips, mouth, tongue, or throat dark urine feeling dizzy or faint irregular heartbeat or chest pain redness, blistering, peeling or loosening of the skin, including inside the mouth trouble breathing unusual bruising or bleeding vomiting yellowing of the eyes or skin Side effects that usually do not require medical attention (report to your doctor or health post acute care nurse practitioner if they continue or are bothersome): changes in how food tastes diarrhea headache stomach upset or nausea What may interact with this medicine? Do not take this medicine with any of the following medications: cisapride pimozide red yeast rice This medicine may also interact with the following medications: control pills cyclosporine diuretics like hydrochlorothiazide medicines for diabetes that are taken by mouth medicines for high cholesterol like atorvastatin, lovastatin or simvastatin phenytoin ramelteon rifabutin rifampin some medicines for anxiety or sleep tacrolimus terfenadine theophylline tofacitinib warfarin What if I miss a dose? If you miss a dose, take it as soon as you can. If it is almost time for your next dose, take only that dose. Do not take double or extra doses. Where should I keep my medicine? Keep out of the reach of children. Store at room temperature below 30 degrees C (86 degrees F). Throw away any medicine after the expiration date. What should I tell my health care provider before I take this medicine? They need to know if you have any of these conditions: electrolyte abnormalities history of irregular heart beat kidney disease an unusual or allergic reaction to fluconazole, other azole antifungals, medicines, foods, dyes, or preservatives or trying to get breast-feeding What should I watch for while using this medicine? Visit your doctor or health post acute care nurse practitioner for regular checkups. If you are taking this medicine for a long time you may need blood work. Tell your doctor if your symptoms do not improve. Some fungal infections need many weeks or months of treatment to cure. Alcohol can increase possible damage to your liver. Avoid alcoholic drinks. If you have a vaginal infection, do not have sex until you have finished your treatment. You can wear a sanitary napkin. Do not use tampons. Wear freshly washed cotton, not synthetic, panties. You have been given the following additional information: Elisa Infection: Thrush [Child] Fluconazole Oral tablet (Electronically signed by Jes Ballesteros P.A.-C 04/29/2017 17:57)
--- NOTE | 2017-04-29 17:57 | ED DISCHARGE INSTRUCTIONS ---
Patient: KIERA GRAY General Instructions [facility] VisitID: [id number] [place] [address] 41y, F Registration Date/Time: 04/29/2017 Candidiasis (secondary to antibiotics). INSTRUCTIONS Drink plenty of fluids. Prescription Medications: Diflucan 200 mg tablets: take 1 tablet orally , then take 1 tablet orally every day for 10 days. No refill. Substitution is permissible. ADDITIONAL INFORMATION Elisa Infection: Thrush [Child] Elisa is a yeast that occurs naturally on the skin and in the mouth. If Elisa grows out of control, it can cause an infection. Elisa can cause a mouth infection called thrush. Children with a weakened immune system or who have been on antibiotic therapy are more likely to get thrush. Elisa infection is often painful and itchy. Thrush causes cracked skin in the corners of the mouth and whitish patches on the tongue and inside of the cheeks. The patches may look like milk. It may be painful for your child to swallow. Oral Elisa is treated with liquid medication given in the mouth through a dropper. Home Care: Medications: Your doctor may prescribe liquid antifungal medication to put in your estefania mouth. Follow the doctors instructions when using this medication. General Care: Rinse your estefania mouth with water after each meal. Then give the liquid medication to your child as directed. Apply the prescribed amount of medication with a dropper into each side of the mouth (between the gum and the cheek) as directed for at least one week and until all white spots are gone. If your child uses a pacifier, boil it for 5 to 10 minutes at least once a day. Thoroughly wash drinking cups and dropper using warm water and soap after each use. Wash your hands well with warm water and soap before and after taking care of your child to avoid spreading infection. Have your child wash his or her hands with warm water and soap after using the toilet and before and after eating. Monitor your child for continued signs of infection. Follow Up as advised by the doctor or our staff. Persistent Elisa infections in children may be a sign of an underlying medical problem. Get Prompt Medical Attention if any of the following occur: Child has fever greater than 100.4F (38C) rectal Child stops eating or drinking Child has continuing or increasing pain Infection gets worse Fluconazole Oral tablet What is this medicine? FLUCONAZOLE (floo LUNA na zole) is an antifungal medicine. It is used to treat certain kinds of fungal or yeast infections. How should I use this medicine? Take this medicine by mouth. Follow the directions on the prescription label. Do not take your medicine more often than directed. Talk to your bar porter regarding the use of this medicine in children. Special care may be needed. This medicine has been used in children as young as 6 months of age. What side effects may I notice from receiving this medicine? Side effects that you should report to your doctor or health director of career services as soon as possible: allergic reactions like skin rash or itching, hives, swelling of the lips, mouth, tongue, or throat dark urine feeling dizzy or faint irregular heartbeat or chest pain redness, blistering, peeling or loosening of the skin, including inside the mouth trouble breathing unusual bruising or bleeding vomiting yellowing of the eyes or skin Side effects that usually do not require medical attention (report to your doctor or health director of career services if they continue or are bothersome): changes in how food tastes diarrhea headache stomach upset or nausea What may interact with this medicine? Do not take this medicine with any of the following medications: cisapride pimozide red yeast rice This medicine may also interact with the following medications: control pills cyclosporine diuretics like hydrochlorothiazide medicines for diabetes that are taken by mouth medicines for high cholesterol like atorvastatin, lovastatin or simvastatin phenytoin ramelteon rifabutin rifampin some medicines for anxiety or sleep tacrolimus terfenadine theophylline tofacitinib warfarin What if I miss a dose? If you miss a dose, take it as soon as you can. If it is almost time for your next dose, take only that dose. Do not take double or extra doses. Where should I keep my medicine? Keep out of the reach of children. Store at room temperature below 30 degrees C (86 degrees F). Throw away any medicine after the expiration date. What should I tell my health care provider before I take this medicine? They need to know if you have any of these conditions: electrolyte abnormalities history of irregular heart beat kidney disease an unusual or allergic reaction to fluconazole, other azole antifungals, medicines, foods, dyes, or preservatives or trying to get breast-feeding What should I watch for while using this medicine? Visit your doctor or health director of career services for regular checkups. If you are taking this medicine for a long time you may need blood work. Tell your doctor if your symptoms do not improve. Some fungal infections need many weeks or months of treatment to cure. Alcohol can increase possible damage to your liver. Avoid alcoholic drinks. If you have a vaginal infection, do not have sex until you have finished your treatment. You can wear a sanitary napkin. Do not use tampons. Wear freshly washed cotton, not synthetic, panties. You have been given the following additional information: Elisa Infection: Thrush [Child] Fluconazole Oral tablet (Electronically signed by Jes Ballesteros P.A.-C 04/29/2017 17:57)
--- NOTE | 2017-04-29 17:57 | ED MAR SUMMARY ---
..... Medication Administration Record [facility] [address] [place] [address] Patient: KIERA GRAY Visit ID: [id number] 41y, F Weight: 68.0 kg Height/Length: 67 in BMI: 23.5 ALLERGIES: No Known Drug Allergy
--- NOTE | 2017-04-29 17:57 | ED MAR SUMMARY ---
..... Medication Administration Record [facility] [address] [place] [address] Patient: KIERA GRAY Visit ID: [id number] 41y, F Weight: 68.0 kg Height/Length: 67 in BMI: 23.5 ALLERGIES: No Known Drug Allergy
== END 2017-04-29 17:50 | disposition home or self-care (01) ==
LOC: ED SRH 16:33
DX: B37.0 Candidal stomatitis (principal); T37.0X5A Adverse effect of sulfonamides, initial encounter; T36.1X5A Adverse effect of cephalosporins and other beta-lactam antibiotics, initial encounter; F17.210 Nicotine dependence, cigarettes, uncomplicated